=== PATIENT | male | born 1985 | race African-American/Black ===

== ENCOUNTER 2019-11-12 15:58 | Inpatient (IN) ==
[2019-11-12] MEDS ORDERED: TYLENOL PO ONE (16:08)
[2019-11-12] MEDS ORDERED: NS 1,000 ML IV ONE ×3 (16:14→20:02)
[2019-11-12] MEDS ORDERED: NS 500 ML IV ONE (16:15)
--- NOTE | 2019-11-12 16:19 | PROVIDER DOCUMENTATION ---
HPI-Fever - General Chief Complaint: Flu Symptoms Stated Complaint: BODY ACHES / COLD SWEATS Time Seen by Provider: 11/12/19 16:01 Source: patient Allergies/Adverse Reactions: Patient Allergies Allergy/AdvReac Type Severity Reaction Status Date / Time No Known Allergies Allergy Verified 11/12/19 16:07 Home Medications: Home Medication List Medication Instructions Recorded Confirmed Last Taken Type NK [No Home Medications] 11/12/19 11/12/19 Unknown History - History of Present Illness-Fever Nature of Presenting Problem: 34 YOM WITH NO PMH PRESENTS WITH C/O SORE THROAT, FEVER, CHILLS, BODY ACHES, COUGH WITH YELLOW SPUTUM THAT DEVELOPED SUDDENLY LAST NIGHT. HE DOES HAVE KNOWN CONTACT WITH PERSONS WITH FLU. HE IS A NON SMOKER, ON NO DAILY MEDICATIONS. HE DENIES SOB, CP, N/V/D. 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 denies: no symptoms reported, fatique, night sweats, weight gain, weight loss, other Eyes: reports: no symptoms reported. denies: see HPI, discharge, dry eyes, decreased vision, blurred vision, double vision, eye pain, redness, other Ears, Nose, Mouth & Throat: reports: throat pain (RESOLVED ELEMENT WINDING MACHINE TENDER). denies: no symptoms reported, see HPI, ear discharge, ear pain, hearing loss, tinnitus, epistaxis, sinus problem, nose pain, loose teeth, mouth/dental pain, mouth swelling, hoarseness, throat swelling, other Cardiovascular: reports: no symptoms reported. denies: see HPI, chest pain, edema, heart murmur, irregular heart rate, orthopnea, palpitations, poor circulation, PND, syncope, other Respiratory: reports: cough (WITH YELLOW SPUTUM). denies: no symptoms reported, see HPI, chronic cough, dyspnea on exertion, excessive sputum production, hemoptysis, pleurisy, shortness of breath, wheezing, other Gastrointestinal: reports: no symptoms reported. denies: see HPI, abdominal pain, hematemesis, constipation, diarrhea, difficulty swallowing, frequent heartburn, nausea, poor appetite, rectal bleeding, vomiting, other Genitourinary: reports: no symptoms reported. denies: see HPI, dysuria, discharge, frequency, flank pain, frequent UTI's, hematuria, hesitency, incontinence, urinary retention, urgency, other Musculoskeletal: reports: muscle aches (GENERALIZED BODY ACHES). denies: no symptoms reported, see HPI, bone pain, back pain, frequent leg cramps, joint pain, joint swelling, muscle weakness, neck pain, other Integumentary: reports: no symptoms reported. denies: see HPI, hives, hair loss, itching, mole changes, nail changes, rash, skin sores/ulcer, skin thickening, other Neurological: reports: no symptoms reported. denies: see HPI, ataxia, dizziness/vertigo, headache/migraines, loss of balance, numbness, paresthesia, seizure, slurred speech, syncope, tremors, other Psychiatric: reports: no symptoms reported. denies: see HPI, anxiety, anti- depressant use, alcohol/drug dependence, depression, emotional problems, insomnia, panic attacks, suicidal thoughts, other Endocrine: reports: no symptoms reported. denies: see HPI, change in skin pigment, excessive sweating, goiter, cold intolerance, heat intolerance, increased hunger, increased thirst, polyuria, other Hematologic/Lymphatic: reports: no symptoms reported. denies: see HPI, blood clots, easy bruising, low blood count, lymphedema, prolonged bleeding, swollen lymph nodes, transfusions, other Allergic/Immunologic: reports: no symptoms reported. denies: see HPI, allergic reactions, allergic rhinitis, asthma, eczema, food allergy, frequent infections, hay fever, hives, positive PPD, urticaria, other Past History - Adult - PAST MEDICAL HISTORY-ADULT Review of Records: reports: Nursing Assessment Review, Social history reviewed & non-contributory. Major Childhood Illnesses: reports: denies history Cardiovascular: reports: denies history Respiratory: reports: denies history Gastrointestinal: reports: denies history Obstetrical/Gynecological: reports: denies history Genitourinary: reports: denies history Musculoskeletal: reports: denies history Neurological: reports: denies history Psychiatric: reports: denies history Endocrine/Immune: reports: denies history Other Conditions: reports: denies history - FAMILY HISTORY Family History: reviewed, not pertinent - SOCIAL HISTORY Smoking: non-smoker Substance Use: denies Physical Exam-General - PHYSICAL EXAM-ADULT Initial Vital Signs Reviewed: Yes - CONSTITUTIONAL General Appearance: alert, no apparent distress - EYES Eyes: PERRL/EOMI, pink conjunctivae - HEAD, EARS, NOSE, MOUTH & THROAT HENMT: normocephalic/atraumatic, moist mucous membranes, normal ENT inspection - NECK Neck: non-tender, full range of motion, supple - RESPIRATORY Respiratory: chest non-tender, lungs clear, normal breath sounds, no pleuratic chest pain, no respiratory distress - CARDIOVASCULAR Cardiovascular: normal peripheral pulses, no gallop, no JVD, no murmur, tachycardia (133) - GASTROINTESTINAL (ABDOMEN) Abdominal Exam: normal bowel sounds, non tender, soft - LYMPHATIC Lymphatic: no adenopathy - MUSCULOSKELETAL Back Exam: normal inspection, no CVA tenderness, no vertebral tenderness Extremity: normal range of motion, non-tender, normal gait, normal inspection Peripheral Pulses: radial (R): 2+, radial (L): 2+ - SKIN Integumentary: normal color, normal turgor, warm/dry - NEUROLOGIC Neurologic: grossly normal - PSYCHIATRIC Psych/Mental Status: normal mood/affect, oriented x 3 Progress - PLAN OF CARE/RESULTS Progress/Plan/Lab Results: Vital Signs - 8 hr 11/12/19 16:04 11/12/19 16:29 11/12/19 17:34 Temperature 102.6 F H Pulse Rate 136 H 122 H 114 H Respiratory Rate 18 22 Blood Pressure 116/68 O2 Sat by Pulse Oximetry 91 L 94 L 11/12/19 17:45 11/12/19 19:03 Temperature 102.5 F H Pulse Rate 113 H Respiratory Rate 18 Blood Pressure O2 Sat by Pulse Oximetry 95 Laboratory Results - last 24 hr 11/12/19 11/12/19 11/12/19 16:11 16:11 16:40 WBC 9.98 RBC 4.62 L Hgb 13.5 L Hct 41.3 L MCV 89.4 MCH 29.2 MCHC 32.7 L RDW Std Deviation 12.2 Plt Count 246 MPV 10.7 H Immature Gran % (Auto) 0.2 Neut % (Auto) 81.1 H Lymph % (Auto) 10.9 L Charlton % (Auto) 7.6 Eos % (Auto) 0.1 Baso % (Auto) 0.1 Immature Gran # (Auto) 0.02 Neut # (Auto) 8.09 H Lymph # (Auto) 1.09 L Charlton # (Auto) 0.76 H Eos # (Auto) 0.01 Baso # (Auto) 0.01 Specimen Type Sample Site pH pCO2 pO2 HCO3 Base Excess Oxyhemoglobin ABG O2 Sat (Calculated) ABG O2 Saturation ABG Carboxyhemoglobin ABG Methemoglobin Rocael Test A-a O2 Difference Total Hemoglobin Lactate Blood Gas Modality FiO2 % Sodium Potassium Chloride Carbon Dioxide Anion Gap BUN Creatinine Estimated GFR/1.73 m2 BUN/Creatinine Ratio Glucose Calculated Osmolality Calcium Magnesium Total Bilirubin AST ALT Alkaline Phosphatase Total Protein Albumin Globulin Albumin/Globulin Ratio Influenza A (Rapid) POSITIVE A Influenza B (Rapid) NEGATIVE Group A Strep Rapid NEGATIVE 11/12/19 11/12/19 16:40 18:48 WBC RBC Hgb Hct MCV MCH MCHC RDW Std Deviation Plt Count MPV Immature Gran % (Auto) Neut % (Auto) Lymph % (Auto) Charlton % (Auto) Eos % (Auto) Baso % (Auto) Immature Gran # (Auto) Neut # (Auto) Lymph # (Auto) Charlton # (Auto) Eos # (Auto) Baso # (Auto) Specimen Type ARTERIAL Sample Site L RADIAL pH 7.46 H pCO2 29 L pO2 51 L HCO3 22.9 Base Excess -2.5 Oxyhemoglobin 90.9 L ABG O2 Sat (Calculated) 13.0 L ABG O2 Saturation 94.5 L ABG Carboxyhemoglobin 3.00 H ABG Methemoglobin 0.8 Rocael Test YES A-a O2 Difference 62.0 Total Hemoglobin 10.2 L Lactate 0.80 Blood Gas Modality ROOM AIR FiO2 % 21.0 Sodium 135 L Potassium 3.6 Chloride 100 Carbon Dioxide 21 L Anion Gap 14 BUN 11 Creatinine 1.1 Estimated GFR/1.73 m2 > 60 BUN/Creatinine Ratio 10 Glucose 121 H Calculated Osmolality 271 Calcium 9.4 Magnesium 1.4 L Total Bilirubin 1.70 H AST 23 ALT 14 Alkaline Phosphatase 54 Total Protein 7.9 Albumin 4.8 Globulin 3.0 Albumin/Globulin Ratio 2.0 Influenza A (Rapid) Influenza B (Rapid) Group A Strep Rapid Orders Category Date Time Status Cardiac Monitoring DIRECTED Care 11/12/19 16:13 Active IV Insertion ORDERED Care 11/12/19 16:13 Completed Misc. NRSG Communication Order DIRECTED Care 11/12/19 17:35 Active cxr [CHEST-2 VIEWS] [RAD] Stat Exams 11/12/19 16:08 Completed ABG [RESP] Routine Lab 11/12/19 18:48 Completed CBC WITH DIFF [HEME] Stat Lab 11/12/19 16:40 Completed COMPREHENSIVE METABOLIC PANEL [CHEM] Stat Lab 11/12/19 16:[address] Stat Lab 11/12/19 16:[address] Stat Lab 11/12/19 16:11 Completed LACTATE, PLASMA [CHEM] Lab 11/12/19 16:58 Ordered LACTATE, PLASMA [CHEM] Lab 11/12/19 19:07 Ordered LACTATE, PLASMA [CHEM] Lab 11/12/19 22:15 Uncollected MAGNESIUM [CHEM] Stat Lab 11/12/19 16:40 Completed 0.9% Sodium Chloride Inj [Ns] 1,000 ml Med 11/12/19 16:14 Discontinued IV 999 mls/hr 0.9% Sodium Chloride Inj [Ns] 1,000 ml Med 11/12/19 16:14 Discontinued IV 999 mls/hr 0.9% Sodium Chloride Inj [Ns] 500 ml Med 11/12/19 19:43 Discontinued .ROUTE As directed 0.9% Sodium Chloride Inj [Ns] 500 ml Med 11/12/19 16:15 Discontinued IV 999 mls/hr Acetaminophen [Tylenol] Med 11/12/19 16:08 Discontinued 1,000 mg PO NOW ONE Albuterol 2.5MG/Ipratrop 0.5MG [Duoneb (A & A)] Med 11/12/19 17:18 Disco ntinued 3 ml INH NOW ONE Ibuprofen [Motrin] Med 11/12/19 17:46 Discontinued 800 mg PO NOW ONE Ketorolac [Toradol] Med 11/12/19 19:52 Discontinued 30 mg IM NOW ONE Oseltamivir [Tamiflu] Med 11/12/19 16:49 Discontinued 75 mg PO NOW ONE Aerosol Treatments Routine Oth 11/12/19 17:18 Completed Aerosol Treatments Stat Ot 11/12/19 17:18 Completed Oxygen Device Stat Ot 11/12/19 16:13 Active 1844: the patient was offered admission due to fever not improving and sats dropping to 90% on room air with influenza. the patient adamantly declines admission. Risk reviewed including hypoxic resp failure up to and including . the patient again declines admission. He is alert and oriented x 3 and capable of making his own medical decisions 2000:DR RIVERA RECOMMENDS ADMISSION AFTER REVIEWING ABG, PT IS FINALLY IN AGREEMENT TO STAY IN HOSPITAL FOR OBSERVATION. DR MAIN PAGED Result Diagrams: 11/12/19 16:40 11/12/19 16:40 - REASSESSMENT Reassessment #1 Time Reassessed: 18:17 (c/o body aches continued) Status: unchanged (pt remains bundled upw ith a hoodie on and refuses to remove jacket and head wrap despite education on fever. reports he needs something else for pain or "just get this off of me and I will leave" pt agreeable to quynhgin g IVF and reassessing) - XRAY 1 XRAY Study: Chest Impression: See EMR Report (EXAM: CHEST-2 VIEWS - 11/12/2019 HISTORY: low sats TECHNIQUE: Chest two views COMPARISON: None. FINDINGS: Heart size is normal. Inspiration is slightly shallow. The lungs appear clear. There is no pleural effusion or pneumothorax identified. IMPRESSION: Slightly shallow inspiration. No other evidence of acute disease. Electronically signed by Santosh Loja 11/12/2019 5:28 PM 11/12/19 1728 Interpreting Physician: Santosh Loja MD Dictated Date/Time: 11/12/19 1727 cc: Jennifer Lopez; None,PCP) - CONSULTS/PCP/HOSPITALIST Notification #1 *Consult/PCP/Hospitalist*: DR MAIN Time Discussed: 20:02 Consult Disposition: Admit Departure - Departure Date of Disposition Decision: 11/12/19 Time of Disposition Decision: 19:57 DIAGNOSIS: Influenza A, Hypoxia Disposition: ADMITTED INPATIENT 09 Certified Medical Emergency: Emergent Condition: Fair Referrals and Follow-Ups: None,PCP [Primary Care Provider] - - Critical Care Note This patient required my direct & personal management of CC.: No Attestation - Physician/ TK Attestation Patient care was provided by Advanced Practice Provider:: Yes Advanced Practice Provider:: Jennifer Lopez Advanced Practice Provider documentation review:: The Mid-level provider docume ntation, treatment plan and medical decision making was reviewed by the physician who agrees with all treatment and medical decision making by the MLP. The physician spent face to face time with patient:: No Advanced Practice Provider documentation review:: Supervising physician onsite and consulted in the evaluation and care of this patient. The physician did not have a face to face encounter with the patient.
[2019-11-12 16:37] LABS: INFLUENZA A POSITIVE (NEGATIVE); INFLUENZA B NEGATIVE (NEGATIVE)
[2019-11-12] MEDS ORDERED: TAMIFLU PO ONE (16:49)
[2019-11-12 17:15] LABS: BASO# 0.01 X1000 (0.0-0.2); BASO% 0.1 % (0.0-0.8); EOS# 0.01 X1000 (0.0-0.7); EOS% 0.1 % (0.0-10.0); HEMATOCRIT 41.3 % (42.0-52.0); HEMOGLOBIN 13.5 g/dL (14.0-18.0); IMM GRAN# 0.02 X1000 (0.0-0.04); IMM GRAN% 0.2 % (0.0-0.5); LYMPH# 1.09 X1000 (1.2-3.4); LYMPH% 10.9 % (20.5-51.1); MCH 29.2 PG (27-31); MCHC 32.7 g/dL (33-37); MCV 89.4 FL (81-99); MONO# 0.76 X1000 (0.11-0.59); MONO% 7.6 % (1.7-9.3); MPV 10.7 FL (7.4-10.4); NEUT# 8.09 X1000 (1.4-6.5); NEUT% 81.1 % (42.2-75.2); PLT 246 X1000 (130-400); RBC 4.62 XMIL (4.7-6.1); RDW 12.2 % (11.5-14.5); WBC 9.98 X1000 (4.8-10.8)
[2019-11-12] MEDS ORDERED: DUONEB (A & A) INH ONE (17:18)
[2019-11-12 17:24] LABS: AGAP 14; ALBUMIN 4.8 g/dL (3.5-5.0); ALKALINE PHOSPHATASE 54 U/L (32-122); BUN 11 mg/dL (8-22); CALCIUM 9.4 mg/dL (8.8-10.2); CHLORIDE 100 mmol/L (98-107); COSMO 271; CREATININE 1.1 mg/dL (0.7-1.2); ESTIMATED GFR > 60; GLUCOSE 121 mg/dL (70-104); GOT 23 U/L (10-34); GPT 14 U/L (10-44); MAGNESIUM 1.4 mg/dL (1.5-2.7); POTASSIUM 3.6 mmol/L (3.5-5.1); SODIUM 135 mmol/L (136-145); TCO2 21 mmol/L (25-35); TOTAL PROTEIN 7.9 g/dL (6.3-8.3)
--- NOTE | 2019-11-12 17:30 | Diag Imaging Result Doc PS360 ---
EXAM: CHEST-2 VIEWS - 11/12/2019 HISTORY: low sats TECHNIQUE: Chest two views COMPARISON: None. FINDINGS: Heart size is normal. Inspiration is slightly shallow. The lungs appear clear. There is no pleural effusion or pneumothorax identified. IMPRESSION: Slightly shallow inspiration. No other evidence of acute disease. Electronically signed by Santosh Loja 11/12/2019 5:28 PM
[2019-11-12] MEDS: MOTRIN PO ONE (17:53)
[2019-11-12 18:58] LABS: BE -2.5 mmoll (-3.0-3.0); BLOOD TYPE ARTERIAL; HCO3-(ACT) 22.9 mmoll (20.0-26.0); METHB 0.8 % (0.0-1.5); O2HB 90.9 % (95.0-99.0); PCO2(98.6) 29 mmHg (35-45); PO2(98.6) 51 mmHg (60-100); SAMPLE BLOOD; SAO2 94.5 % (95.0-100.0); THB 10.2 g/dL (11.5-17.4); pH(98.6) 7.46 (7.35-7.45)
[2019-11-12 19:00] LABS: ALLEN TEST YES; MODALITY ROOM AIR
[2019-11-12] MEDS ORDERED: NS 500 ML ONE (19:43)
[2019-11-12] MEDS ORDERED: TORADOL IM ONE (19:52)
[2019-11-12] MEDS ORDERED: TYLENOL PO PRN (20:02)
[2019-11-12] MEDS ORDERED: TORADOL IV PRN (20:02)
[2019-11-12] MEDS: NS 1,000 ML IV SCH (22:31)
[2019-11-13] MEDS: TYLENOL PO PRN ×2 (04:31→14:35)
[2019-11-13] MEDS: TORADOL IV PRN ×4 (04:31→20:25)
[2019-11-13] MEDS: NS 1,000 ML IV SCH ×3 (06:34→18:35)
[2019-11-13] MEDS: TAMIFLU PO SCH ×2 (06:35→20:26)
[2019-11-13] MEDS: ROBITUSSIN-AC PO PRN ×2 (10:06→20:26)
[2019-11-13] MEDS: ZITHROMAX PO SCH (10:06)
[2019-11-13] MEDS: DUONEB (A & A) INH PRN ×2 (20:07→23:13)
--- NOTE | 2019-11-13 20:58 | HISTORY AND PHYSICAL ---
CHIEF COMPLAINT: Fever, body aches, chills and cough. HISTORY OF PRESENT ILLNESS: This is a 34-year-old gentleman who denies any prior health history who presents to the emergency room complaining of sore throat, fever, generalized body aches, chills that developed during the night prior to coming to the ER. He states he has been at work with contact with persons with the flu. He was found to be influenza A positive. He was started on Tamiflu and admitted for further evaluation and treatment. PAST MEDICAL HISTORY: Denies. PAST SURGICAL HISTORY: Denies. SOCIAL HISTORY: He denies any alcohol, tobacco, or illicit drug use. ALLERGIES: No known drug allergies. HOME MEDICATIONS: None. REVIEW OF SYSTEMS: Discussed with the patient with pertinent positives stated in the HPI. He denied any syncope, dizziness, chest pain, palpitations, any PND, orthopnea, nausea, vomiting, diarrhea, constipation, black or bloody vomitus or stools, any hematuria, dysuria, frequency or urgency. PHYSICAL EXAMINATION: GENERAL: This is a 34-year-old gentleman who is lying in the bed in no distress. VITAL SIGNS: Blood pressure is 139/63 with a heart rate of 100, respirations 20, temperature 98.8 degrees with room air sats 98% to 100%. EYES: Pupils are equal, round, react to light. EOMs are intact. Sclerae are anicteric. HENT: Head is normocephalic, atraumatic. Mucous membranes are moist. NECK: Supple with trachea midline. CARDIOVASCULAR: Regular rate and rhythm. S1 and S2 appreciated. He has no lower extremity edema. Calves are nontender bilateral with peripheral pulses palpable x4 extremities. PULMONARY: Breath sounds are clear with no increased work of breathing noted. Chest rises and falls symmetric with respiration. Chest wall is nontender to palpation. GASTROINTESTINAL: Abdomen is soft, nontender, nondistended with bowel sounds in all 4 quadrants. GENITOURINARY: No CVA or suprapubic tenderness. NEUROLOGIC: He is alert and oriented x3. SKIN: Warm and dry. LABORATORY DATA: WBC is 9.9 with hemoglobin 13.5, hematocrit 41.3, platelets of 246,000, sodium 135, potassium 3.6, BUN 11, creatinine 1.1 with a glucose of 121. Influenza A is positive, influenza B and group A rapid strep are negative. ABGs: pH is 7.46 with pCO2 of 29, pO2 of 51, and bicarb of 22.9. RADIOLOGIC DATA: Chest x-ray reveals slightly shallow inspiration. No other evidence of acute disease. ASSESSMENT AND PLAN: 1. Influenza A. 2. Acute hypoxemic respiratory failure. 3. Cough. 4. Fever. PLAN: The patient has been admitted to the medical-surgical floor and placed on telemetry, which will continue. We will continue with Tamiflu, gentle hydration. We will add azithromycin. We will continue with Robitussin with codeine and cough syrup. We will recheck a CBC and BMP in the morning. Plan was discussed with Dr. Hall. Further treatments pending hospital course. Dictated by MARICEL Rodriguez for Henrry Hall MD cc: MARICEL Rodriguez MD
--- NOTE | 2019-11-14 00:25 | HISTORY AND PHYSICAL ---
ADDENDUM: Patient seen and examined by myself. Full note dictated and discussed with nurse practitioner. The patient presented to the hospital with a high fever of 103 degrees, and was noted to be hypoxemic. He notes he did not get a flu shot. He was diagnosed with flu A. He is 3 days into his illness. We are going to place him on Tamiflu, oxygen and supportive care. We will follow. cc: Henrry Hall MD
[2019-11-14] MEDS: TORADOL IV PRN ×2 (04:14→14:22)
[2019-11-14] MEDS: ROBITUSSIN-AC PO PRN ×3 (04:24→20:17)
[2019-11-14] MEDS: NS 1,000 ML IV SCH (07:42)
[2019-11-14] MEDS: DUONEB (A & A) INH PRN ×4 (08:06→19:50)
[2019-11-14] MEDS: ZITHROMAX PO SCH (10:23)
[2019-11-14] MEDS: SOLU-MEDROL IV SCH ×2 (10:23→20:18)
[2019-11-14] MEDS: TAMIFLU PO SCH ×2 (10:23→20:17)
[2019-11-14 15:33] VITALS: BP 145/71
--- NOTE | 2019-11-15 19:49 | DISCHARGE SUMMARY ---
ADMISSION DATE: 11/12/2019 DISCHARGE DATE: 11/14/2019 DISCHARGE DIAGNOSES: 1. Influenza type A2. 2. Acute hypoxic respiratory failure, resolved. 3. Febrile illness, resolved. 4. Sepsis secondary to pneumonia, resolved. CONSULTATIONS: None. PROCEDURES: None. BRIEF HOSPITAL COURSE: The patient was admitted to the hospital, treated in usual fashion, placed on Tamiflu, azithromycin. He was given steroids secondary to his hypoxemia. Thankfully, on discharge he is awake, alert. He is in no distress. Overall he has improved. DISPOSITION: We are going to discharge him home with azithromycin for the next 3 days as well as Tamiflu for the next 3 days. No other changes made in his home medications, diet, or activity. TIME OF CARE: Greater than 30 minutes was spent in total care. cc: Henrry Hall MD
== END 2019-11-14 20:30 | disposition home or self-care (01) | DRG 871 ==
LOC: P.MEDSURG 15:58 → P.ED 15:58 → OBSVTOIN 20:35 → SUATTDRO 20:35
PROVIDERS: ATTEND Family Medicine